=== PATIENT | male | born 1970 | race Caucasian/White ===

== ENCOUNTER 2018-10-08 10:08 | Emergency (ER) | payer SELFPAY ==
[~2018-10-08] VITALS: Ht 162.6 cm; Wt 68.0 kg
[2018-10-08] MEDS ORDERED: EPINEPHrine HCL 1 MG/10 ML SYRG IV ONE (10:13)
[2018-10-08] MEDS ORDERED: SODIUM BICARBONATE 8.4% INJ 50ML SYRINGE IV ONE (10:13)
[2018-10-08] MEDS ORDERED: CALCIUM CHL(10%) 100MG/ML 10ML VIAL IV ONE (10:13)
[2018-10-08 10:18] VITALS: BP 0/0
[2018-10-08] MEDS ORDERED: EPINEPHrine HCL 1 MG/10 ML SYRG ONE ×3 (10:19→10:47)
[2018-10-08] MEDS ORDERED: EPINEPHrine HCL 1 MG/1 ML AMP ONE (10:46)
[2018-10-08 10:50] LABS: Hematocrit 46.1 % (41.0-53.0); Mean Corpuscular Hemoglobin 32.5 pg (28.0-32.0); Mean Corpuscular Hgb Conc. 32.6 g/dL (32.0-36.0); Mean Corpuscular Volume 99.8 fL (80.0-100.0); Platelet Count (auto) 152 10^3/uL (140-450); Red Blood Cells 4.63 10^6/uL (4.5-5.90); Red Cell Distribution Width 13.2 % (11.8-14.3); White Blood Cell 11.4 10^3/uL (4.4-10.8)
[2018-10-08 10:52] LABS: Basophils % (manual) 0 (0.0-2.0); Blast Cells 0; Metamyelocytes % 0; Myelocytes % 0; Promyelocytes % 0
[2018-10-08 11:10] LABS: Albumin 3.2 g/dL (3.4-5.0); Calcium 10.1 mg/dL (8.5-10.1); Magnesium 2.8 mg/dL (1.6-2.6); Potassium 3.6 mmol/L (3.5-5.1)
[2018-10-08 11:12] LABS: BUN/Creatinine Ratio 9.6; Bilirubin, Total 0.7 mg/dL (0.2-1.0); Total Protein 6.3 g/dL (6.4-8.2)
[2018-10-08 15:00] LABS: Band Neutrophils % (manual) 2; Eosinophils % (manual) 1 (0-7); Lymphocytes % (manual) 54 (10.0-50.0); Monocytes % (manual) 4 (0-12); Reactive Lymphocytes 24
== END 2018-10-08 15:15 | disposition expired ==
LOC: ER 10:12 → EDBD 10:12 → ER 15:15
DX: I46.9 Cardiac arrest, cause unspecified (principal); E11.21 Type 2 diabetes mellitus with diabetic nephropathy; R94.5 Abnormal results of liver function studies
CPT/HCPCS: 31500; 36415; 80053; 82962; 83735; 84484; 85007; 85027; 92950; 93005; 94761; 99291; J0171